=== PATIENT | female | born 1980 | race Caucasian/White ===

== ENCOUNTER 2017-01-12 15:29 | Emergency (ER) | payer OTHER ==
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
--- NOTE | 2017-01-12 18:55 | ED ORDER SUMMARY ---
..... Patient: ALIA HANSON OrderSheet [facility] VisitID: [id number] [place] [address] 36y, F Registration Date/Time: 01/12/2017 ORDER SHEET Weight: 81.6 kg (stated) Allergies: Sulfa Antibiotics GENERAL ORDERS: UA-Culture if indicated Urgent (16:10 01/12/2017 Raul Acevedo) (Ack 16:17 OSnell) (16:57 SReitz R.N.) Urine Urgent (16:10 01/12/2017 Raul Acevedo) (Ack 16:17 OSnell) (16:57 Nehemiah R.N.) Urine Drug Screen Urgent (16:10 01/12/2017 Raul Acevedo) (Ack 16:17 OSyonathan) (16:57 Nehemiah R.N.) CT Head wo Cont Urgent (17:36 01/12/2017 Raul Acevedo) (Ack 17:40 OSnell) (19:54 SRisaac R.N.) CT Sinus/Facial Bones wo Cont Urgent (17:36 01/12/2017 Raul Acevedo) (Ack 17:40 OSnell) (19:54 Kents R.N.) MEDICATION ORDERS: Motrin PO 800 mg (NOW) (18:18 01/12/2017 Raul Acevedo) (Ack 18:25 Nehemiah R.N.) (Cancelled: Patient [id number]:53 Roshan R.N.) IV FLUIDS: ORDER SHEET NOTES: [Electronically signed by Bisi Montaño R.N. (19:54 01/12/2017)] [Electronically signed by Antwan Crandall Dr. (08:51 01/15/2017)] [Electronically locked/signed by Bisi Montaño R.N. (19:54 01/12/2017)]
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
--- NOTE | 2017-01-12 18:55 | ED ORDER SUMMARY ---
..... Patient: ALIA HANSON OrderSheet [facility] VisitID: [id number] [place] [address] 36y, F Registration Date/Time: 01/12/2017 ORDER SHEET Weight: 81.6 kg (stated) Allergies: Sulfa Antibiotics GENERAL ORDERS: UA-Culture if indicated Urgent (16:10 01/12/2017 Raul Acevedo) (Ack 16:17 OSnell) (16:57 SReitz R.N.) Urine Urgent (16:10 01/12/2017 Raul Acevedo) (Ack 16:17 OSnell) (16:57 Nehemiah R.N.) Urine Drug Screen Urgent (16:10 01/12/2017 Raul Acevedo) (Ack 16:17 OSyonathan) (16:57 Nehemiah R.N.) CT Head wo Cont Urgent (17:36 01/12/2017 Raul Acevedo) (Ack 17:40 OSnell) (19:54 SRisaac R.N.) CT Sinus/Facial Bones wo Cont Urgent (17:36 01/12/2017 Raul Acevedo) (Ack 17:40 OSnell) (19:54 Kents R.N.) MEDICATION ORDERS: Motrin PO 800 mg (NOW) (18:18 01/12/2017 Raul Acevedo) (Ack 18:25 Nehemiah R.N.) (Cancelled: Patient Yirszmm11:53 Roshan R.N.) IV FLUIDS: ORDER SHEET NOTES: [Electronically signed by Bisi Montaño R.N. (19:54 01/12/2017)] [Electronically signed by Antwan Crandall Dr. (08:51 01/15/2017)] [Electronically locked/signed by Bisi Montaño R.N. (19:54 01/12/2017)]
--- NOTE | 2017-01-15 08:51 | ED MAR SUMMARY ---
..... Medication Administration Record [facility] [address], [place] [id number] Patient: ALIA HANSON Fabiola Visit ID: [id number] 36y, F Weight: 81.6 kg Height/Length: 66 in BMI: 29 ALLERGIES: Sulfa Antibiotics
--- NOTE | 2017-01-15 08:51 | ED MED RECONCILIATION SUMMARY ---
Patient: ALIA HANSON Medication Reconciliation Report [facility] VisitID: [id number] [address] [place] [address] 36y, F Registration Date/Time: 01/12/2017 Weight: 81.6 kg Height/Length: 66 in. BMI: 29.0 ALLERGIES: Sulfa Antibiotics The patient's Home Medications are listed below: CONTINUE TAKING THE FOLLOWING MEDICATIONS: Depression medication The source(s) of the original Home Medication information: Not obtained. The following Medications were given to the patient in the Emergency Department: None. The following Medications were prescribed to the patient: Diclofenac 50 mg tablets: take 1 tablet orally every 8 hours as needed for pain or stiffness. Dispense thirty (30). No refill. -- Antwan Crandall Dr.
--- NOTE | 2017-01-15 08:51 | ED MED RECONCILIATION SUMMARY ---
Patient: ALIA HANSON Medication Reconciliation Report [facility] VisitID: [id number] [address] [place] [address] 36y, F Registration Date/Time: 01/12/2017 Weight: 81.6 kg Height/Length: 66 in. BMI: 29.0 ALLERGIES: Sulfa Antibiotics The patient's Home Medications are listed below: CONTINUE TAKING THE FOLLOWING MEDICATIONS: Depression medication The source(s) of the original Home Medication information: Not obtained. The following Medications were given to the patient in the Emergency Department: None. The following Medications were prescribed to the patient: Diclofenac 50 mg tablets: take 1 tablet orally every 8 hours as needed for pain or stiffness. Dispense thirty (30). No refill. -- Antwan Crandall Dr.
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
--- NOTE | 2017-01-15 08:51 | ED MAR SUMMARY ---
..... Medication Administration [facility] [address] [place], [place] [id number] Patient: ALIA HANSON Fabiola Visit ID: [id number] 36y, F Weight: 81.6 kg Height/Length: 66 in BMI: 29 ALLERGIES: Sulfa Antibiotics
== END 2017-01-12 19:20 | disposition home or self-care (01) ==
LOC: ED SRH 15:29
DX: S06.0X0A Concussion without loss of consciousness, initial encounter (principal); Y04.0XXA Assault by unarmed brawl or fight, initial encounter; Y93.89 Activity, other specified; Y92.511 Restaurant or cafe as the place of occurrence of the external cause; Y99.9 Unspecified external cause status; Z88.2 Allergy status to sulfonamides
CPT/HCPCS: 90004; 92760; 92761; 92762; 92763; 92764; 92765; 92766; 92767; 93070